=== PATIENT | female | born 1970 | race Caucasian/White ===

== ENCOUNTER 2016-11-05 06:10 | Day surgery (SDC) | payer OTHER ==
[2016-11-01 10:49] VITALS: BMI 22.5
--- NOTE | 2016-11-02 14:25 | HP ---
[facility] - Chief Complaint Chief Complaint: 46 year old paient found to have an endometrial polyp on sonogram of the pelvis. History of Present Illness: Pt had an u/s of the pelvis and was noted to have an endometrial polyp. The patient had the sonogram in order to investigate a fibroid in the uterus.The fibroid was also present. History Source: Patient Limitations to Obtaining History: No Limitations - Past Medical History Allergies/Adverse Reactions: Allergies Allergy/AdvReac Type Severity Reaction Status Date / Time Penicillins Allergy Rash Verified 11/01/16 10:42 STUDIO TECHNICIAN: No: Alzheimer's, CVA, Dementia, Migraine, Multiple Sclerosis, Peripheral Neuropathy, Parkinson's, Seizure, Syncope, TIA, Vertigo, Other Cardiovascular: No: AFIB, Aneurysm, Aortic Insufficiency, Aortic Stenosis, CAD, CHF, Deep Vein Thrombosis, HTN, Hyperlipdemia, AR, Mitral Insufficiency, Mitral Stenosis, Murmur, Pulmonary Hypertension, Other Pulmonary: No: Asthma, Bronchitis, Cancer, COPD, O2 Dependent, Pneumonia, Previously Intubated, Pulmonary Embolus, Pulmonary Fibrosis, Sleep Apnea, Other Gastrointestinal: No: Ascites, Cancer, Constipation, Crohn's Disease, Diverticulitis, Diverticulosis, Esophageal Varices, Gastritis, GERD, GI Bleed, Hemorrhoids, Hiatal Hernia, Inflamatory Bowel Disease, Irritable Bowel Disease, Pancreatitis, Peptic Ulcer Disease, Ulcerative Colitis, Other Hepatobiliary: No: Cirrhosis, Cholelithiasis, Cholecystitis, Choledocholithiasis , Hepatitis A, Hepatitis B, Hepatitis C, Other Renal/: No: Renal Failure, Renal Inusuff, BPH, Cancer, Hematuria, Hemodialysis , Neurogenic Bladder, Renal Calculi, UTI, Other Reproductive: No: Ectopic , Endometriosis, Fibroids, PID, Polycystic Ovary Syndrome, Postmenopausal, Other ...LMP: 10/29/16 ...: No Heme/Onc: No: Anemia, B12 Deficiency, Bleeding Disorder, Cancer, Current Chemotherapy, Current Radiation Therapy, Hemochromatosis, Hypercoaguable State, Myeloproliferative Synd, Sickle Cell Disease, Sickle Cell Trait, Thrombocytopenia, Other Infectious Disease: No: AIDS, C-Diff, Herpes Zoster, HIV, MRSA, STD's, Tuberculosis, VREF, Other Musculoskeletal: No: Bursitis, Chronic low back pain, Hemiparesis, Hemiplegia, Osteoarthritis, Paraplegia, Other Rheumatology: No: Fibromyalgia, Gout, Lupus, Rheumatoid Arthritis, Sarcoidosis, Vasculitis, Other ENT: No: Allergic Rhinitis, Sinusitis, Other Endocrine: No: Kendall's Disease, Joaquín's Disease, Diabetes Insipidus, Diabetes Mellitus, Hyperparathyroidism, Hyperthyroidism, Hypothyroidism, Osteopenia, SIADH, Other Dermatology: No: Basal Cell, Cellulitis, Eczema, Melanoma, Psoriasis, Squamous Cell, Other - Current Medications Current Medications: Home Medications Medication Instructions Recorded NK [No Known Home Medication] 11/01/16 Satellite Physical Exam - Physical Examination General Appearance: Well Nourished, Well Developed, Alert & Oriented x3 ENT: Clear, No Discharge, No masses Lung: Clear to auscultation Heart: Regular rate & rhythm, Normal S1, Normal S2 Breasts: Soft, Non-Tender, No masses bilaterally Abdomen: Soft, No tenderness, No CVA Extremities: No edema, No tenderness/swelling Pelvic Exam: Within normal limits External Genitalia, Within normal limits Vagina, Within normal limits Cervix, Within normal limits Uterus, Within normal limits [facility]: Intact, Alert, Oriented Satellite Impression/Plan - Impression/Plan Impression: Endometrial polyp of the uterus Operative Procedure: Hysteroscopy with polypectomy and D/C. Date to be Performed: 11/05/16
[2016-11-05] MEDS ORDERED: ePHEDrine SULFATE 50 MG/1 ML AMPULE ONE (07:23)
[2016-11-05] MEDS ORDERED: MIDAZOLAM HCL 2 MG/2 ML SINGLE DOSE VIAL ONE (07:24)
[2016-11-05] MEDS ORDERED: PROPOFOL 20 ML ONE ×3 (07:24)
[2016-11-05] MEDS ORDERED: SUCCINYLCHOLINE CHLORIDE 200 MG/10 ML VIAL ONE (07:24)
[2016-11-05] MEDS ORDERED: LIDOCAINE HCL/PF 2% SDV 5ML VIAL ONE (07:25)
[2016-11-05] MEDS ORDERED: DEXAMETHASONE SOD PHOSPHATE 4 MG/1 ML VIAL ONE (07:49)
[2016-11-05] MEDS ORDERED: ONDANSETRON 4 MG/2 ML VIAL ONE (07:49)
[2016-11-05] MEDS ORDERED: LACTATED RINGERS SOLUTION 1,000 ML IV SCH (08:30)
[2016-11-05] MEDS ORDERED: ONDANSETRON 4 MG/2 ML VIAL IVPUSH PRN (08:30)
[2016-11-05 08:47] VITALS: TEMP 98
[2016-11-05 10:03] VITALS: BP 112/64; PULSE 73
--- NOTE | 2016-11-05 11:38 | OP ---
DATE OF OPERATION: 11/05/2016 PREOPERATIVE DIAGNOSIS: Polyp of the uterus. POSTOPERATIVE DIAGNOSIS: Polyp of the uterus. OPERATIVE PROCEDURE: Dilation and curettage, hysteroscopy. DESCRIPTION OF PROCEDURE: The patient was brought to the operating room and placed in a supine position. Given anesthesia by the assistant chief nursing officer. Placed in the lithotomy position. Prepped and draped in the usual sterile manner. The anterior lip of the cervix was grasped with a tenaculum. A speculum was placed into the vagina prior to the grasping of the tenaculum. The uterus was sounded to 8 cm. The cervix was then dilated with Barrera dilator. Hysteroscopy was performed. The endometrial cavity appeared normal. There were some clots noted internally. There was also tissue loosely coming off the surface of the endometrium. After this was accomplished, the dilation and curettage was carried out with a medium-sized curette, and endocervical curettage was also carried out. A moderate amount of tissue was sent to Pathology for analysis. The patient tolerated the procedure well. The hemostasis was approximately 5 mL. VINCENT LIZAMA M.D. [id number]
--- NOTE | 2016-11-06 15:38 | PATH ---
Surgical Pathology Report Patient Name: MAN WISEMAN [facility]. Rec. #: [id number] /Age/Gender: 1970 (Age: 46) / F Account: [id number] Location: [facility] Taken: 11/05/2016 Received: 11/05/2016 Reported: 11/06/2016 Physicians: Patricia Zamora M.D. Specimen(s) Received A: ENDOMETRIAL CURETTINGS B: ENDOCERVICAL CURETTINGS C: ENDOMETRIAL TISSUE Clinical History Polyp of corpus uteri Final Diagnosis A. ENDOMETRIUM, CURETTAGE: FRAGMENTS OF PROLIFERATIVE ENDOMETRIUM WITH AREAS SUGGESTIVE OF ENDOMETRIAL POLYP. SMALL FRAGMENTS OF BENIGN SMOOTH MUSCLE. FRAGMENTS OF BENIGN ENDOCERVICAL TISSUE WITH SQUAMOUS METAPLASIA AND FRAGMENTS OF BENIGN SQUAMOUS EPITHELIUM. B. ENDOCERVIX, CURETTAGE: FRAGMENTS OF BENIGN ENDOMETRIAL TISSUE WITH AREAS SUGGESTIVE OF ENDOMETRIAL POLYP. FRAGMENTS OF BENIGN ENDOCERVICAL TISSUE WITH ACTIVE/CHRONIC CERVICITIS AND SQUAMOUS METAPLASIA. C. ENDOMETRIAL TISSUE: FRAGMENTS OF PROLIFERATIVE-TYPE ENDOMETRIUM WITH FOCALLY DILATED GLANDS AND DENSE STROMA MOST CONSISTENT WITH ENDOMETRIAL POLYP. FRAGMENTS OF BENIGN ENDOCERVICAL TISSUE WITH SQUAMOUS METAPLASIA. Electronically Signed Carl Boyle M.D. Gross Description A. Received in formalin labeled "endometrial curettings" is a 2.6 x 2.5 x 0.3 cm aggregate of grimaldo-red soft tissue fragments. The formalin is filtered and the specimen is entirely submitted in one cassette. B. Received in formalin labeled "endocervical curettings" is a 1.5 x 1.3 x 0.3 cm aggregate of grimaldo-red soft tissue fragments. The formalin is filtered and the specimen is entirely submitted in one cassette. C. Received in formalin labeled "endometrial tissue" is a 0.9 x 0.8 x 0.2 cm aggregate of grimaldo pink soft tissue fragments. The formalin is filtered and the specimen is entirely submitted in one cassette. 11/05/201611/05/2016
== END 2016-11-05 10:00 | disposition home or self-care (01) ==
LOC: JASU-SURG 06:10
PROVIDERS: ATTEND Obstetrics & Gynecology
PROC: 0UDB8ZX Extraction of Endometrium, Via Natural or Artificial Opening Endoscopic, Diagnostic (ICD-10-PCS; principal; 2016-11-05 07:30)
DX: N84.0 Polyp of corpus uteri (principal)
CPT/HCPCS: 84703; 88305-TC; 94760